=== PATIENT | male | born 1975 | race Caucasian/White ===

== ENCOUNTER 2016-08-12 13:52 | Inpatient (IN) | payer OTHER ==
[~2016-08-12] VITALS: Ht 182.9 cm; Wt 113.4 kg
[2016-08-12] MEDS ORDERED: NO HOME MEDS (15:24)
[2016-08-13 03:53] LABS: HEMOGLOBIN 13.2 gm/dl (14.0-17.5); RED BLOOD COUNT 4.23 M/UL (4.20-5.50); WHITE BLOOD COUNT 13.4 K/UL (4.5-11.0)
[2016-08-13 04:17] LABS: BUN/CREATININE RATIO 11 (0-10)
[2016-08-14 04:20] LABS: BUN/CREATININE RATIO 20 (0-10)
[2016-08-14] MEDS ORDERED: BRILINTA90 MG PO (14:46)
[2016-08-14] MEDS ORDERED: CHANTIX0.5 MG PO (14:47)
[2016-08-14] MEDS ORDERED: LIPITOR TAB 2020 MG PO (14:47)
[2016-08-14] MEDS ORDERED: ZESTRIL 40 MG T40 MG PO (14:48)
[2016-08-14] MEDS ORDERED: CATAPRES0.2 MG PO (14:48)
[2016-08-14] MEDS ORDERED: ASPIR 8181 MG PO (14:49)
== END 2016-08-14 15:35 | disposition home or self-care (01) | DRG 247 ==
LOC: CCU 13:52
PROVIDERS: Physician Assistant; ADMIT Family Medicine
DX: I21.4 Non-ST elevation (NSTEMI) myocardial infarction (principal); I16.1 Hypertensive emergency; I25.10 Atherosclerotic heart disease of native coronary artery without angina pectoris; E78.5 Hyperlipidemia, unspecified; E66.9 Obesity, unspecified; F17.210 Nicotine dependence, cigarettes, uncomplicated; F12.90 Cannabis use, unspecified, uncomplicated; F13.10 Sedative, hypnotic or anxiolytic abuse, uncomplicated; F11.10 Opioid abuse, uncomplicated; Z91.19 Patient's noncompliance with other medical treatment and regimen; Z91.14 Patient's other noncompliance with medication regimen; Z72.3 Lack of physical exercise; Z82.49 Family history of ischemic heart disease and other diseases of the circulatory system
CPT/HCPCS: ECHO; 36415; 80048; 80053; 80061; 80307; 82550; 83036; 84484; 85027; 93005; 93306; C1725; C1769; C1874; C1887; C9600; J0461; J0583; J1327; J1644; J2250; J2270; J2405; J2550; J3010; J7030; J7040; J7050; Q0163; Q9963

== ENCOUNTER → 2016-08-31 | Outpatient (CLI) | payer OTHER ==
[~2016-08-31] MED LIST: ASPIR 8181 MG PO; BRILINTA90 MG PO; CATAPRES0.2 MG PO; CHANTIX0.5 MG PO; LIPITOR TAB 2020 MG PO; NO HOME MEDS; ZESTRIL 40 MG T40 MG PO
== END ==
LOC: US 12:15
DX: R58 Hemorrhage, not elsewhere classified (principal); T14.8 Other injury of unspecified body region; M79.606 Pain in leg, unspecified
CPT/HCPCS: 93926

== ENCOUNTER → 2016-09-03 | Outpatient (CLI) | payer OTHER | LOC: KOH-I 09-02 11:00 | DX: I72.9 Aneurysm of unspecified site (principal); I10 Essential (primary) hypertension; R58 Hemorrhage, not elsewhere classified; M79.604 Pain in right leg | CPT/HCPCS: 93926 ==